=== PATIENT | female | born 1965 | race Caucasian/White ===

== ENCOUNTER 2022-08-25 13:38 | Outpatient (CLI) | payer OTHER | END 2022-08-25 13:39 | disposition home or self-care (01) | LOC: CSHMAMMO 13:38 | PROVIDERS: ATTEND Nurse Practitioner Family | DX: Z12.31 Encounter for screening mammogram for malignant neoplasm of breast (principal); Z13.820 Encounter for screening for osteoporosis | CPT/HCPCS: 77063; 77067; 77080 ==